=== PATIENT | male | born 1970 | race African-American/Black ===

== ENCOUNTER 2018-07-31 13:53 | Emergency (ER) | payer SELFPAY ==
[2018-07-31 15:44] LABS: #Basophils 0.1 thou/uL (0.0-0.2); #Eosinphils 0.2 thou/uL (0.0-0.7); #Lymphocytes 2.4 thou/uL (1.20-3.40); #Monocytes 0.7 thou/uL (0.11-0.59); #Neutrophils 4.2 thou/uL (1.40-6.50); %Basophils 1.2 % (0.0-1.0); %Eosinophils 2.8 % (0.0-10.0); %Lymphocytes 31.5 % (21.0-51.0); %Monocytes 9.1 % (0.0-10.0); %Neutrophils 55.4 % (42.0-75.0); Hemoglobin 12.9 g/dL (14.0-18.0); Mean Corpuscular HGB CONC 32.4 g/dL (32.0-36.0); Mean Corpuscular Hemoglobin 32.1 pg (27.0-31.0); Mean Platelet Volume 7.6 fL (7.4-10.4); Platelet Count 290 thou/uL (130-400); RBC Distribution Width 11.8 % (11.5-14.5); Red Blood Cell (RBC) Count 4.02 mill/uL (4.70-6.10); White Blood Cell (WBC) Count 7.5 thou/uL (4.8-10.8)
[2018-07-31 16:06] LABS: ALT (SGPT) 10 U/L (8-55); AST (SGOT) 17 U/L (5-34); Alkaline Phosphatase 70 U/L (40-150); Anion Gap 13 mmol/L (10-20); BUN (Urea Nitrogen) 11 mg/dL (8.9-20.6); Bilirubin, Total 0.8 mg/dL (0.2-1.2); Calc. Creatinine Clearance 0 mL/min (70-130); Calcium 9.6 mg/dL (7.8-10.44); Carbon Dioxide 23 mmol/L (22-29); Chloride 105 mmol/L (98-107); Estimated GFR-MDRD 86; Globulin 3.4 g/dL (2.4-3.5); Glucose 86 mg/dL (70-105); Potassium 3.7 mmol/L (3.5-5.1); Protein, Total 7.4 g/dL (6.0-8.3); Sodium 137 mmol/L (136-145)
[2018-07-31] MEDS ORDERED: Ondansetron ODT 4 MG TAB ONE (16:06)
[2018-07-31] MEDS ORDERED: Azithromycin 250 MG TAB ONE (18:18)
--- NOTE | 2018-07-31 18:32 | RAD ---
CHEST 1 VIEW: Date: 07/31/18 HISTORY: Dyspnea. Nausea. COMPARISON: 09/04/15. FINDINGS: Cardiac silhouette is magnified by projection. Pulmonary vasculature is unremarkable. Mediastinum is midline. Subtle parenchymal opacity at the right base without obscuration of the cardiac margin. No e vidence of pneumothorax. gambling monitor leads overlie the chest. IMPRESSION: Mild right basilar infiltrate-like opacity. Clinical correlation regarding other signs and symptoms o f right basilar pneumonitis is required. Please consider upright PA and lateral views of the chest af ter medical treatment to evaluate for clearing. POS: [facility]
== END 2018-07-31 18:59 | disposition home or self-care (01) ==
LOC: ERS 13:53
DX: R91.8 Other nonspecific abnormal finding of lung field (principal); R11.0 Nausea; F17.210 Nicotine dependence, cigarettes, uncomplicated
CPT/HCPCS: 36415; 71045; 80053; 82550; 84484; 85025; 93005; 96360; Q0162

== ENCOUNTER 2021-05-11 00:28 | Inpatient (IN) | payer OTHER, SELFPAY ==
[2021-05-11] MEDS ORDERED: Fentanyl 100 MCG/2 ML VIAL ONE (00:55)
[2021-05-11] MEDS ORDERED: Ondansetron PF 4 MG/2 ML Vial ONE (01:05)
[2021-05-11 01:39] LABS: #Basophils 0.1 thou/uL (0.0-0.2); #Eosinphils 0.1 thou/uL (0.0-0.7); #Lymphocytes 1.4 thou/uL (1.20-3.40); #Monocytes 0.8 thou/uL (0.11-0.59); #Neutrophils 9.5 thou/uL (1.40-6.50); %Basophils 0.8 % (0.0-1.0); %Eosinophils 1.1 % (0.0-10.0); %Lymphocytes 11.8 % (21.0-51.0); %Monocytes 6.6 % (0.0-10.0); %Neutrophils 79.7 % (42.0-75.0); Hemoglobin 10.4 g/dL (14.0-18.0); Mean Corpuscular HGB CONC 34.3 g/dL (32.0-36.0); Mean Platelet Volume 7.4 fL (7.4-10.4); Platelet Count 318 thou/uL (130-400); RBC Distribution Width 11.7 % (11.5-14.5); Red Blood Cell (RBC) Count 3.08 mill/uL (4.70-6.10)
[2021-05-11 02:07] LABS: ALT (SGPT) 47 U/L (8-55); AST (SGOT) 38 U/L (5-34); Albumin 2.9 g/dL (3.5-5.0); Alkaline Phosphatase 50 U/L (40-110); BUN (Urea Nitrogen) 44 mg/dL (8.9-20.6); Bilirubin, Total 1.2 mg/dL (0.2-1.2); CK (CPK) 91 U/L (30-200); Calc. Creatinine Clearance 0 mL/min (70-130); Calcium 8.4 mg/dL (7.8-10.44); Carbon Dioxide 17 mmol/L (22-29); Chloride 103 mmol/L (98-107); Glucose 206 mg/dL (70-105); Lipase 13 U/L (8-78); Protein, Total 5.9 g/dL (6.0-8.3); Sodium 136 mmol/L (136-145)
[2021-05-11 03:02] LABS: Anion Gap 19 mmol/L (10-20)
[2021-05-11] MEDS ORDERED: Aspirin 81 mg Enteric Coated Tablet ONE (05:06)
[2021-05-11] MEDS ORDERED: Ondansetron ODT 4 MG TAB PO PRN (08:15)
[2021-05-11] MEDS ORDERED: Ondansetron PF 4 MG/2 ML Vial IVP PRN (08:15)
[2021-05-11] MEDS ORDERED: Heparin 25,000 units/D5W 500 ML IVPB SCH (08:45)
[2021-05-11] MEDS ORDERED: Heparin 10,000 UNITS/ 10 ML VIAL SLOW IVP SCH (08:45)
[2021-05-11] MEDS ORDERED: CEFAZOLIN 2 GM in Premix Bag 1 BAG IVPB SCH (09:15)
[2021-05-11 09:17] LABS: Hemoglobin 11.4 g/dL (14.0-18.0); Platelet Count 320 thou/uL (130-400)
[2021-05-11] MEDS ORDERED: ceFAZolin Sodium/D5W 2 GM in Premix Bag 1 BAG IVPB SCH (09:30)
[2021-05-11 10:12] LABS: INR-International Normal Ratio 1.1; Prothrombin Time 13.9 sec (12.0-14.7)
[2021-05-11] MEDS ORDERED: Heparin 5,000 UNITS/ML VIAL ONE (10:25)
[2021-05-11] MEDS ORDERED: Protamine Sulfate 50 MG/5 ML VIAL ONE (10:25)
[2021-05-11] MEDS ORDERED: EPINEPHrine 1 MG/ML AMP ONE (10:25)
[2021-05-11] MEDS ORDERED: Bupivacaine 0.25% HCL 30 ML VIAL ONE (10:25)
[2021-05-11] MEDS ORDERED: Dexamethasone 4 mg/ml Vial ONE (10:25)
[2021-05-11] MEDS ORDERED: Fentanyl 250 MCG/5 ML VIAL ONE (11:12)
[2021-05-11] MEDS ORDERED: Midazolam HCl 2 mg/2 ml Vial ONE (11:12)
[2021-05-11] MEDS ORDERED: PROPOFOL 200 MG/20 ML VIAL ONE (11:20)
[2021-05-11] MEDS ORDERED: Rocuronium Bromide 10 MG/ML (10ML VIAL) ONE (11:20)
[2021-05-11] MEDS ORDERED: Esmolol 100 MG/10 ML VIAL ONE (11:20)
[2021-05-11] MEDS ORDERED: Glycopyrrolate 0.2 MG/ML 5 ML SYRINGE ONE (11:20)
[2021-05-11] MEDS ORDERED: Lidocaine 1% PF 5 ML VIAL ONE (11:20)
[2021-05-11] MEDS ORDERED: Phenylephrine 10 MG/ML VIAL ONE (11:23)
[2021-05-11] MEDS ORDERED: niCARdipine 25 MG/10 ML VIAL ONE (11:23)
[2021-05-11 11:30] LABS: SARS-CoV-2 NAA Rapid Test Not Detected (NotDetected)
[2021-05-11] MEDS ORDERED: Amlodipine 5 MG TAB PO SCH (12:00)
[2021-05-11] MEDS ORDERED: Fentanyl 100 MCG/2 ML VIAL SLOW IVP PRN ×2 (12:35)
[2021-05-11] MEDS ORDERED: traMADol HCl 50 MG TAB PO PRN (12:35)
[2021-05-11] MEDS ORDERED: Enoxaparin Sodium 80 MG/0.8 ML SYRINGE SC SCH ×2 (13:15→21:00)
[2021-05-11] MEDS: traMADol HCl 50 MG TAB PO PRN (14:04)
[2021-05-11 14:29] LABS: INR-International Normal Ratio 1.1; PTT 45.5 sec (22.9-36.1); Prothrombin Time 14.5 sec (12.0-14.7)
[2021-05-11 14:37] LABS: D-Dimer Test 11.97 *mcg/mL (0.27-0.43)
[2021-05-11] MEDS ORDERED: FLU VACC QS2021-22(6MOS UP)/PF 60 MCG/0.5 ML SYRINGE IM ONE (15:00)
[2021-05-11 16:20] LABS: Amphetamine Not Detected (NotDetected); Barbiturates Screen Not Detected (NotDetected); Benzodiazepine Screen Not Detected (NotDetected); Cocaine Metabolite Screen Not Detected (NotDetected); Methadone Not Detected (NotDetected); Methamphetamine Not Detected (NotDetected); Opiate Screen Not Detected (NotDetected); Oxycodone Screen Not Detected (NotDetected); Phencyclidine (PCP) Not Detected (NotDetected); THC/Cannabinoid Screen Not Detected (NotDetected); Tricyclic Screen Not Detected (NotDetected)
[2021-05-11] MEDS: ceFAZolin Sodium/D5W 2 GM in Premix Bag 1 BAG IVPB SCH (17:01)
[2021-05-11] MEDS: Atorvastatin Calcium 10 MG TAB PO SCH (20:23)
[2021-05-12] MEDS: traMADol HCl 50 MG TAB PO PRN (02:03)
[2021-05-12] MEDS: ceFAZolin Sodium/D5W 2 GM in Premix Bag 1 BAG IVPB SCH ×2 (02:04→08:07)
[2021-05-12 03:54] LABS: #Eosinphils 0.1 thou/uL (0.0-0.7); #Lymphocytes 2.1 thou/uL (1.20-3.40); #Monocytes 0.8 thou/uL (0.11-0.59); #Neutrophils 5.9 thou/uL (1.40-6.50); %Basophils 0.3 % (0.0-1.0); %Eosinophils 0.9 % (0.0-10.0); %Lymphocytes 23.3 % (21.0-51.0); %Monocytes 8.9 % (0.0-10.0); %Neutrophils 66.5 % (42.0-75.0); Hemoglobin 11.2 g/dL (14.0-18.0); Mean Corpuscular HGB CONC 34.2 g/dL (32.0-36.0); Mean Corpuscular Volume 99.5 fL (78.0-98.0); Mean Platelet Volume 7.9 fL (7.4-10.4); Platelet Count 311 thou/uL (130-400); Red Blood Cell (RBC) Count 3.29 mill/uL (4.70-6.10); White Blood Cell (WBC) Count 8.9 thou/uL (4.8-10.8)
[2021-05-12 04:32] LABS: Anion Gap 12 mmol/L (10-20); BUN (Urea Nitrogen) 17 mg/dL (8.9-20.6); Calc. Creatinine Clearance 77 mL/min (70-130); Calcium 8.8 mg/dL (7.8-10.44); Carbon Dioxide 25 mmol/L (22-29); Chloride 98 mmol/L (98-107); Glucose 92 mg/dL (70-105); Potassium 4.3 mmol/L (3.5-5.1); Sodium 131 mmol/L (136-145)
[2021-05-12 05:18] VITALS: BMI 22.0
[2021-05-12] MEDS: Hydrochlorothiazide 25 MG TAB PO SCH (07:12)
[2021-05-12] MEDS: Apixaban 5 MG TAB PO SCH ×2 (07:12→20:11)
[2021-05-12] MEDS: Aspirin 325 MG TAB PO SCH (07:12)
[2021-05-12] MEDS: Amlodipine 5 MG TAB PO SCH (07:12)
[2021-05-12] MEDS: Atorvastatin Calcium 10 MG TAB PO SCH (20:11)
[2021-05-12] MEDS: Lactated Ringer's 1,000 ML IV SCH (20:11)
[2021-05-13] MEDS: Lactated Ringer's 1,000 ML IV SCH (01:50)
[2021-05-13] MEDS: Hydrochlorothiazide 25 MG TAB PO SCH (08:58)
[2021-05-13] MEDS: Aspirin 325 MG TAB PO SCH (08:58)
[2021-05-13] MEDS: Apixaban 5 MG TAB PO SCH ×2 (08:58→21:43)
[2021-05-13] MEDS: Amlodipine 5 MG TAB PO SCH (08:58)
[2021-05-13] MEDS ORDERED: Atorvastatin Calcium 40 MG TAB PO SCH (21:00)
[2021-05-14] MEDS: Aspirin 325 MG TAB PO SCH (09:49)
[2021-05-14] MEDS: Apixaban 5 MG TAB PO SCH (09:49)
[2021-05-14] MEDS: Amlodipine 5 MG TAB PO SCH (10:04)
[2021-05-14] MEDS: Hydrochlorothiazide 25 MG TAB PO SCH (10:05)
[2021-05-14 11:54] VITALS: TEMP 98.3
[2021-05-14] MEDS ORDERED: COVID-19 VACC,AD26(JANSSEN)/PF 0.5 ML SYRINGE IM ONE (14:57)
[2021-05-14] MEDS ORDERED: Apixaban 5 MG TAB PO SCH (16:00)
[2021-05-14 16:57] VITALS: BP 134/87
[2021-05-14 17:14] LABS: Cardiolipin IgG Ab 1.5 GPL-U/mL (<10 Negative); EliA APS New Method **** NEW METHOD ****
[2021-05-15 12:06] LABS: Protein C Activity 109 % (78-152)
[2021-05-18 10:38] LABS: HEX PHOS LA Tube 1 36.8 SEC; HEX PHOS LA Tube 2 34.8 SEC
== END 2021-05-14 16:53 | disposition home or self-care (01) | DRG 253 ==
LOC: ERS 00:28 → NEURO 04:39 → CCU 09:41 → OBSVTOIN 10:39 → NEURO 05-12 15:32
PROVIDERS: ADMIT Hospitalist; ATTEND Internal Medicine
PROC: 04CL0ZZ Extirpation of Matter from Left Femoral Artery, Open Approach (ICD-10-PCS; principal; 2021-05-11)
PROC: 04CK0ZZ Extirpation of Matter from Right Femoral Artery, Open Approach (ICD-10-PCS; 2021-05-11)
DX: I74.3 Embolism and thrombosis of arteries of the lower extremities (principal); E87.0 Hyperosmolality and hypernatremia; Z20.822 Contact with and (suspected) exposure to COVID-19; I12.9 Hypertensive chronic kidney disease with stage 1 through stage 4 chronic kidney disease, or unspecified chronic kidney disease; N18.30 Chronic kidney disease, stage 3 unspecified
CPT/HCPCS: 36415; 72141; 72146; 72148; 75635; 80048; 80053; 80306; 82550; 83090; 83690; 84484; 85025; 85240; 85300; 85303; 85305; 85307; 85379; 85598; 85610; 85652; 85730; 86140; 86147; 93005; 93010; 93306; 96374; 96375; G0378; J0171; J1100; J1644; J1650; J2250; J2370; J2405; J2704; J2720; J3010; S0020; U0002

== ENCOUNTER 2022-05-11 19:05 | Emergency (ER) | payer OTHER ==
[2022-05-11] MEDS ORDERED: Ketorolac Tromethamine 30 MG/ML VIAL ONE (20:18)
[2022-05-11 21:41] LABS: Bacteria/HPF 1+ HPF (None Seen); Bilirubin Negative (Negative); Blood, Urine Negative (Negative); Clarity Clear (Clear); Glucose, Urine (Dipstick) Normal (Negative); Ketone, Urine Negative (Negative); Leukocyte 75 Leu/uL (Negative); Nitrite Negative (Negative); Protein, Urine (Dipstick) 20 mg/dL (Neg-Trace); RBC/HPF 0-3 HPF (0-3); Specific Gravity, Urine 1.027 (1.002-1.036); Squamous Epithelial 0-3 HPF (0-3); Urobilinogen 3 mg/dL (Less than 2)
== END 2022-05-11 22:01 | disposition home or self-care (01) ==
LOC: ERS 19:05
DX: R10.9 Unspecified abdominal pain (principal); I10 Essential (primary) hypertension; E78.5 Hyperlipidemia, unspecified; F17.210 Nicotine dependence, cigarettes, uncomplicated
CPT/HCPCS: 74176; 81003; 81015; 96372; J1885

== ENCOUNTER 2024-01-15 20:17 | Emergency (ER) | payer OTHER ==
[2024-01-15] MEDS ORDERED: Morphine 4 MG/ML VIAL ONE (20:54)
[2024-01-15] MEDS ORDERED: Dexamethasone 10 MG/ML VIAL ONE (20:55)
[2024-01-15] MEDS ORDERED: Ondansetron PF 4 MG/2 ML Vial ONE (20:55)
[2024-01-15] MEDS ORDERED: Ketorolac Tromethamine 30 MG (1 mL) VIAL ONE (21:41)
== END 2024-01-15 23:05 | disposition home or self-care (01) ==
LOC: ERS 20:17
DX: M54.42 Lumbago with sciatica, left side (principal); M54.16 Radiculopathy, lumbar region; I10 Essential (primary) hypertension; F17.210 Nicotine dependence, cigarettes, uncomplicated
CPT/HCPCS: 96374; 96375; J1100; J1885; J2270; J2405